=== PATIENT | female | born 1970 | race African-American/Black ===

== ENCOUNTER 2024-07-28 18:40 | Emergency (ER) | payer MEDICAID ==
[~2024-07-28] VITALS: Ht 177.8 cm; Wt 114.0 kg
[2024-07-28 18:58] VITALS: O2SAT 99
[2024-07-28 20:18] VITALS: BP 162/93; PULSE 90; RESP 20; TEMP 36.55848; O2SAT 99
[2024-07-28] MEDS: ACETAMINOPHEN 325MG TABLET PO ONE (20:52)
[2024-07-28 21:13] LABS: BASOPHILS % 0.5 % (0.0-2.0); EOSINOPHILS % 1.4 % (0.0-5.0); HEMATOCRIT. 39.2 % (36.0-48.0); LYMPHOCYTES % 25.2 % (20.0-50.0); MEAN CORPUSCULAR HEMOGLOBIN 28.3 pg (28.0-32.0); MEAN CORPUSCULAR HGB CONC 33.1 g/dL (31.0-37.0); MEAN CORPUSCULAR VOLUME 85.6 fL (81.0-99.0); MEAN PLATELET VOLUME 9.2 fl (7.4-10.4); MONOCYTES % 4.9 % (2.0-8.0); PLATELET 311 x1000/uL (130-400); RED BLOOD CELL COUNT 4.58 mill/uL (4.2-5.4); RED CELL DISTRIBUTION WIDTH 13.6 % (11.6-14.6); WHITE BLOOD COUNT 11.8 x1000/uL (4.5-11.0)
[2024-07-28 21:18] LABS: CHLORIDE 104 mEq/L (98-107); POTASSIUM 4.3 mEq/L (3.5-5.1); SODIUM 140 mEq/L (136-145)
[2024-07-28 21:19] LABS: CARBON DIOXIDE 31 mEq/L (21-32)
[2024-07-28 21:20] LABS: CALCIUM 10.3 mg/dL (8.7-10.4)
[2024-07-28 21:24] LABS: CREATININE 0.9 mg/dL (0.6-1.0); GLUCOSE 114 mg/dL (70-105); UREA NITROGEN BLOOD 13 mg/dL (9-23)
[2024-07-28 23:43] LABS: ALANINE AMINOTRANSFERASE 20 IU/L (10-49); ALBUMIN 4.6 g/dL (3.2-4.8); ASPARTATE AMINOTRANSFERASE 19 IU/L (<34); BILIRUBIN DIRECT 0.1 mg/dL (<=3.0); BILIRUBIN TOTAL 0.4 mg/dL (0.1-1.0); PROTEIN TOTAL 7.5 g/dL (6.0-8.3)
[2024-07-28 23:44] LABS: TROPONIN I HIGH SENSITIVITY < 4 ng/L (3.0-34)
== END 2024-07-29 00:27 | disposition left against medical advice (07) ==
LOC: EDBD 18:40 → ER 18:40
DX: R53.1 Weakness (principal); I10 Essential (primary) hypertension; M79.7 Fibromyalgia; Z88.1 Allergy status to other antibiotic agents
CPT/HCPCS: 36415; 71045; 80048; 80076; 84484; 85025; 99284